=== PATIENT | female | born 1995 | race Caucasian/White ===

== ENCOUNTER 2016-03-11 23:37 | Emergency (ER) | payer OTHER ==
[~2016-03-11] VITALS: Ht 160 cm; Wt 54.5 kg
[~2016-03-11 23:37] MED LIST: PRENATAL1 TA2 PO; ZOFRAN 4MG T4 MG/TAB PO
[2016-03-11 23:41] VITALS: TEMP 98
[2016-03-11] MEDS ORDERED: MIRENA52 MG IY (23:43)
[2016-03-11] MEDS ORDERED: KLONOPIN 0.5MG0.5 MG PO (23:44)
[2016-03-12 01:00] LABS: PH 7 (5-8); SQUAMOUS EPITHELIAL 0-2 /hpf; URINE APPEARANCE Hazy; URINE BACTERIA None Seen /hpf; URINE BILIRUBIN Negative (NEGATIVE); URINE BLOOD Negative (NEGATIVE); URINE COLOR Yellow; URINE GLUCOSE Negative (NEGATIVE); URINE KETONE Negative (NEGATIVE)
[2016-03-12 01:10] VITALS: BP 92/73; PULSE 78
[2016-03-12] MEDS ORDERED: MACROBID 1100 MG/CAP PO (01:10)
[2016-03-12] MEDS ORDERED: ZOVIRAX400 MG PO (01:10)
== END 2016-03-12 01:22 | disposition home or self-care (01) ==
LOC: COL.ER 23:37
PROVIDERS: Family Medicine
DX: N39.0 Urinary tract infection, site not specified (principal); L98.9 Disorder of the skin and subcutaneous tissue, unspecified; K64.4 Residual hemorrhoidal skin tags